=== PATIENT | male | born 1965 | race Caucasian/White ===

== ENCOUNTER 2021-05-21 09:08 | Emergency (ER) | payer OTHER, SELFPAY ==
--- NOTE | ~2021-05-21 | CT_ITS ---
EXAMINATION: CT abdomen pelvis wo con DATE: 05/21/2021 09:37 INDICATION: Right flank pain. TECHNIQUE: Computed tomography (CT) of the abdomen and pelvis was performed without intravenous contr ast. Automated exposure control and iterative reconstruction technique were employed. The dose-length product was 244.31 mGy-cm. COMPARISON: None. FINDINGS: The visualized portions of the lung bases demonstrate mild atelectasis. There is a pneumato yasmani in right lower lobe. No pleural effusion. The heart size is normal. No pericardial effusion. The re are cysts in the liver measuring up to 9 mm. The gallbladder, spleen, pancreas, and adrenal glands are normal. There is a 4 mm stone in distal right ureter. There is a 3 mm stone in left kidney. Ther e are no dilated loops of bowel. The appendix is normal. There are no pathologically enlarged lymph n odes. There is no free intraperitoneal fluid. There is mild lumbar spondylosis. IMPRESSION: 1. 4 mm stone in distal right ureter. No hydronephrosis. 2. 3 mm nonobstructing left kidney stone. Reviewed, dictated and finalized at location A. TH POLICY NURSE
[2021-05-21 09:27] VITALS: BP 127/96; PULSE 93; RESP 12; TEMP 36.7; O2SAT 99
--- NOTE | 2021-05-21 09:35 | PC.NURSE ---
Patient to CT.
[2021-05-21 10:43] LABS: Add Urine Microscopic? YES; Appearance Urine Clear (Clear); Bilirubin Urine Negative (Negative); Blood Urine 3+ (Negative); Color Urine Yellow (Yellow); Glucose Urine UA Negative (Negative); Ketones Urine Negative (Negative); Leukocyte Esterase Ur Negative LEU/UL (Negative); Mucus Urine Rare /lpf; Nitrate Urine Negative (Negative); Protein Urine Negative (Negative); RBC Urine >75 /hpf (0-2); Specific Grav Ur 1.017 (1.001-1.035); Squamous Epithelial Cell Urine Rare /hpf (Few); Urobilinogen Urine Negative mg/dL (<2.0); WBC Urine 0-3 /hpf
--- NOTE | 2021-05-21 11:07 | ED.MALEGU ---
HPI - Male Genitourinary General Chief complaint: Urogenital-Male Stated complaint: right flank pain Time Seen by Provider: 05/21/21 09:18 History of Present Illness HPI Narrative: Patient is a 55-year-old male who presents ER with right-sided flank pain. Ongoing over the last day. Feels similar to the kidney stone he recently passed. 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 Denies any medical problems. Pain radiates into his testicle. No dysuria or hematuria. Occasional nausea. Related Data Allergies Allergy/AdvReac Type Severity Reaction Status Date / Time No Known Allergies Allergy Verified 05/21/21 09:52 Review of Systems Review of Systems: All systems reviewed & are unremarkable except as noted in HPI and below Constitutional: Constitutional: Denies chills, Denies fever(s) and Denies weakness Gastrointestinal: Gastrointestinal: Reports abdominal pain, Reports nausea and Denies vomiting Genitourinary: Genitourinary: Denies hematuria, Denies dysuria, Reports testicular pain and Reports urinary frequency PMFSH Past Medical History Medical History (Updated 05/21/21 @ 11:10 by Cong Berrios MD) Kidney stones Surgical History Surgical History (Updated 05/21/21 @ 11:08 by Cong Berrios MD) H/O lithotripsy Social History Social History (Updated 05/21/21 @ 11:08 by Cong Berrios MD) Smoking status: Current every day smoker Exam Narrative: GENERAL: Well-appearing, well-nourished, and in no acute distress. HEAD: Normocephalic, atraumatic. CHEST: Clear to auscultation. No respiratory distress. HEART: Regular rate and rhythm. Normal peripheral pulses. ABDOMEN: Soft, nontender, nondistended. : Normal-appearing external genitalia with uncircumcised penis. No reproducible tenderness of the testicles. No inguinal hernia. EXTREMITIES: Normal range of motion. No edema. NEURO: Alert and oriented x3. PSYCH: Normal mood and affect. Course Course Emergency Course: Patient informed of results. Discussed treatment plan. Discharge home. Vital Signs Vital signs: Vital Signs Temperature 98.0 F 05/21/21 09:27 Pulse Rate 93 05/21/21 09:27 Respiratory Rate 12 05/21/21 09:27 Blood Pressure 127/96 H 05/21/21 09:27 Pulse Oximetry 99 05/21/21 09:27 Temperature 98.0 F 05/21/21 09:27 Pulse Rate 93 05/21/21 09:27 Respiratory Rate 12 05/21/21 09:27 Blood Pressure 127/96 H 05/21/21 09:27 Pulse Oximetry 99 05/21/21 09:27 MDM - Male Genitourinary Lab Data Labs: Lab Results 05/21/21 Range/Units 09:53 Urine Color Yellow (Yellow) Urine Appearance Clear (Clear) Urine pH 5.0 (5.0-9.0) Ur Specific [place] 1.017 (1.001-1.035) Urine Protein Negative (Negative) mg/dL Urine Glucose (UA) Negative (Negative) mg/dL Urine Ketones Negative (Negative) mg/dL Ur Blood (Man) 3+ H (Negative) Urine Nitrate Negative (Negative) Urine Bilirubin Negative (Negative) Urine Urobilinogen Negative (<2.0) mg/dL Leukocyte Esterase Rfl Negative (Negative) GARRY/UL Urine RBC >75 H (0-2) /hpf Urine WBC 0-3 /hpf Ur Squamous Epith Cells Rare (Few) /hpf Urine Mucus Rare /lpf Imaging Data Radiologist's impression: ITS Impressions Abdomen/Pelvis CT 05/21/21 09:44 IMPRESSION: 1. 4 mm stone in distal right ureter. No hydronephrosis. 2. 3 mm nonobstructing left kidney stone. Discharge Plan Discharge Clinical Impression: Ureterolithiasis Patient Disposition: Home, Self-Care Condition: Stable Instructions: Kidney Stones (ED), How to Strain Your Urine (ED) Additional Instructions: You have a 4 mm kidney stone on the right side that you are passing. Take Greene for pain, Zofran for nausea, and Flomax for ureteral spasm. Follow-up with urology. Return to the ER if you develop fever over 100.4 ?F, you have increased pain, you have additional concerns. Prescriptions: New hy
[2021-05-21 11:16] VITALS: BP 121/89; PULSE 69; RESP 18; TEMP 36.4; O2SAT 98
[2021-05-21 11:28] VITALS: BP 130/99; PULSE 84; RESP 16; O2SAT 99
== END 2021-05-21 11:30 | disposition home or self-care (01) ==
PROVIDERS: Emergency Provider Emergency Medicine
DX: N20.2 Calculus of kidney with calculus of ureter (principal); Z87.442 Personal history of urinary calculi; F17.200 Nicotine dependence, unspecified, uncomplicated
CPT/HCPCS: 74176; 81001; 99284